=== PATIENT | female | born 1950 | race Two or more races ===

== ENCOUNTER 2021-02-23 05:56 | Inpatient (IN) | payer OTHER ==
[~2021-02-23] VITALS: Ht 157.5 cm; Wt 126.0 kg
[2021-02-23] MEDS ORDERED: VASOTEC2.5 MG (06:15)
[2021-02-23] MEDS ORDERED: ISOSORBIDE DINI30 MG (06:15)
[2021-02-23] MEDS ORDERED: CARVEDILOL ER40 MG (06:15)
[2021-02-23] MEDS ORDERED: GLUMETZA500 MG (06:15)
--- NOTE | 2021-02-23 06:19 | NUR ---
SE RECIBE PTE ALERTA Y ORIENTADA POR TANIA. PTE REFIERE TEAGAN SUFRICO CAIDA EL EULALIO DE RAYMUNDO A LAS 9:00PM APROXIMADAMENTE Y PRESENTAR DOLOR EN CADERA IZQUIERDA.
--- NOTE | 2021-02-23 07:09 | NUR ---
PACIENTE EVALUADA POR DR MIGUEL ÁNGEL BARDALES [place] [facility]. SE ORIENTA A PACIENTE SOBRE EL MISMO Y REFIERE ENTENDER. SE ADM MEDICAMENTOS MANPREET ORDEN MEDICA. PENDIENTE PLACAS.
--- NOTE | 2021-02-23 10:59 | NUR ---
PTE SE EDUCA SOBRE INSERCION DE JUAREZ, PTE REFIERE ENTENDER. PTE COOPERADORA, SE LE INSERTA CATETER URINARIO BAJO MEDIDAS ESTERILES Y ASEPTICAS. Y SE LE ARACELI MUESTRAS DE OPHELIA Y DE ORINA MANPREET ORDEN MEDICA TOMANDO MEDIAS ASEPTICAS. CATETER URINARIO #16, SE LE FIJO EN JACQUIE HERNANDEZ. PTE BAJO OBSERVACION POR CAMBIOS SIGNIFICATIVOS.
--- NOTE | 2021-02-23 10:59 | NUR ---
TECNICA DE ORTHOPEDIA JUSTINE CONNELL COLOCA PESAS DE 7 LIBRAS EN AREA AFECTADA.
[2021-02-24] MEDS ORDERED: ISOSORBIDE MONO30 M2 (14:37)
[2021-02-24] MEDS ORDERED: CARVEDILOL25 M1 (14:37)
[2021-02-24] MEDS ORDERED: ATORVASTATIN CA20 MG (14:38)
[2021-02-24] MEDS ORDERED: PANTOPRAZOLE SO40 MG (14:38)
[2021-02-24] MEDS ORDERED: PAROXETINE HCL20 MG (14:38)
[2021-02-24] MEDS ORDERED: FENOFIBRATE145 MG (14:38)
[2021-02-24] MEDS ORDERED: JANUVIA100 MG (14:38)
[2021-02-26] MEDS ORDERED: PERCOCET 5-3251 EACH PO (10:29)
[2021-02-26] MEDS ORDERED: ELIQUIS2.5 MG PO (10:30)
== END 2021-02-26 16:30 | disposition home or self-care (01) | DRG 482 ==
LOC: ER 05:56 → SURH 17:28
PROVIDERS: ADMIT Orthopaedic Surgery; ATTEND Orthopaedic Surgery
PROC: 0QUC0KZ Supplement Left Lower Femur with Nonautologous Tissue Substitute, Open Approach (ICD-10-PCS; 2021-02-24)
PROC: B51NZZA Fluoroscopy of Left Upper Extremity Veins, Guidance (ICD-10-PCS; 2021-02-24)
PROC: 0QS706Z Reposition Left Upper Femur with Intramedullary Internal Fixation Device, Open Approach (ICD-10-PCS; principal; 2021-02-24 07:15)
PROC: 30233N1 Transfusion of Nonautologous Red Blood Cells into Peripheral Vein, Percutaneous Approach (ICD-10-PCS; 2021-02-25)
DX: S72.142A Displaced intertrochanteric fracture of left femur, initial encounter for closed fracture (principal); D64.9 Anemia, unspecified; W19.XXXA Unspecified fall, initial encounter; Y93.89 Activity, other specified; Y92.89 Other specified places as the place of occurrence of the external cause; Y99.8 Other external cause status; Z20.822 Contact with and (suspected) exposure to COVID-19; E11.9 Type 2 diabetes mellitus without complications; Z79.4 Long term (current) use of insulin; I10 Essential (primary) hypertension; K21.9 Gastro-esophageal reflux disease without esophagitis; M19.90 Unspecified osteoarthritis, unspecified site; E78.49 Other hyperlipidemia